=== PATIENT | female | born 2000 | race Caucasian/White ===

== ENCOUNTER 2018-05-30 23:08 | Outpatient (CLI) | payer BC ==
[~2018-05-30] VITALS: Ht 170.2 cm; Wt 71.0 kg
[2018-05-30 23:30] VITALS: BP 125/83
[2018-06-02] MEDS ORDERED: NITR100C56 PO (10:05)
== END 2018-05-31 00:49 | disposition home or self-care (01) ==
LOC: LDOP 23:08
PROVIDERS: ATTEND Obstetrics & Gynecology
DX: O23.43 Unspecified infection of urinary tract in pregnancy, third trimester (principal); Z3A.38 38 weeks gestation of pregnancy
CPT/HCPCS: 59025; 89060; 99201; G0463; Q0114

== ENCOUNTER 2018-06-03 13:32 | Outpatient (CLI) | payer BC ==
[~2018-06-03 13:32] MED LIST: NITR100C56 PO
[2018-06-03 13:51] VITALS: BP 131/86
== END 2018-06-03 14:33 | disposition home or self-care (01) ==
LOC: LDOP 13:32
PROVIDERS: ATTEND Obstetrics & Gynecology
DX: O23.43 Unspecified infection of urinary tract in pregnancy, third trimester (principal); Z3A.38 38 weeks gestation of pregnancy
CPT/HCPCS: 59025; 99211; G0463

== ENCOUNTER 2018-06-05 12:16 | Inpatient (IN) | payer BC ==
[~2018-06-05] VITALS: Ht 170.2 cm; Wt 71.3 kg
[2018-06-05 12:19] VITALS: BP 138/93
[2018-06-05] MEDS ORDERED: OXYTOCIN 30U/ 0.9% NaCL 500ML 500 ML IV PRN (12:20)
[2018-06-05] MEDS: D5%-LACTATED RINGERS 1,000 ML IV SCH ×2 (12:20→20:20)
[2018-06-05] MEDS ORDERED: OXYTOCIN 30U/ 0.9% NaCL 500ML 500 ML IV ONE (12:20)
[2018-06-05] MEDS ORDERED: FENTANYL PF 100 MCG/2ML IVPush PRN (12:30)
[2018-06-05] MEDS ORDERED: FENTANYL PF 100 MCG/2ML IV PRN (12:30)
[2018-06-05] MEDS ORDERED: ONDANSETRON 2MG/ML, 2ML IVPush PRN (12:30)
[2018-06-05] MEDS: LACTATED RINGERS 1,000 ML IV SCH ×2 (12:46→20:20)
[2018-06-05 12:55] LABS: ALANINE AMINOTRANSFERASE 22 U/L (12-78); ANION GAP 8 mmol/L (5-15); CALCIUM 8.5 mg/dL (8.5-10.1); CHLORIDE 105 mmol/L (98-107); CREATININE 0.56 mg/dL (0.55-1.02)
[2018-06-05 12:56] LABS: BILIRUBIN, DIRECT < 0.1 mg/dL (0.1-0.2)
[2018-06-05 12:56] LABS: BASOPHILS # (AUTO) 0.03 x10^3/uL (0-0.3); BASOPHILS % (AUTO) 0 % (0-1); EOSINOPHILS # (AUTO) 0.02 x10^3/uL (0-0.8); EOSINOPHILS % (AUTO) 0 % (1-7); LYMPHOCYTES # (AUTO) 1.57 x10^3/uL (1-6.1); LYMPHOCYTES % (AUTO) 12 % (22-44); MD NO; MEAN CORPUSCULAR HEMOGLOBIN 27.6 pg (27.0-34.8); MEAN CORPUSCULAR HGB CONC 33.6 g/dL (32.4-35.8); MEAN CORPUSCULAR VOLUME 82.3 fL (80-100); MEAN PLATELET VOLUME 8.8 fL (7.4-10.4); MONOCYTES % (AUTO) 7 % (2-9); NEUTROPHILS % (AUTO) 81 % (42-75); PLATELET COUNT 218 x10^3/uL (130-400); RED BLOOD COUNT 4.62 x10^6/uL (3.82-5.3); RED CELL DISTRIBUTION WIDTH 12.9 % (9.6-15.2)
[2018-06-05 12:57] LABS: ALKALINE PHOSPHATASE 156 U/L (45-117); BILIRUBIN,TOTAL 0.3 mg/dL (0.2-1.0); TOTAL PROTEIN 7.4 g/dL (6.4-8.2)
[2018-06-05] MEDS ORDERED: OXYTOCIN 30U/ 0.9% NaCL 500ML 500 ML ONE ×2 (13:37→20:23)
[2018-06-05] MEDS: CEFAZOLIN PMX 2GM/50ML 50 ML IVPB SCH ×2 (14:03→20:00)
[2018-06-05] MEDS ORDERED: FENTANYL PF 100 MCG/2ML ONE (14:28)
[2018-06-05] MEDS ORDERED: LACTATED RINGERS 1,000 ML IV SCH (16:00)
[2018-06-05] MEDS ORDERED: LACTATED RINGERS 1,000 ML IVBOLUS PRN (16:00)
[2018-06-05] MEDS ORDERED: NALOXONE 0.4 MG/ML, 1ML IVPush PRN (16:00)
[2018-06-05] MEDS ORDERED: EPHEDRINE 50 MG/ML, 1ML IVPush PRN (16:00)
[2018-06-05] MEDS ORDERED: FENTANYL/BUPIV./NS/PF 250 ML EPIDCONT SCH ×2 (16:00→16:01)
[2018-06-05] MEDS ORDERED: BUPIVACAINE/PF 0.5% ONE (16:03)
[2018-06-05] MEDS ORDERED: BUPIVACAINE 0.25% ONE (16:19)
[2018-06-05] MEDS ORDERED: FENTANYL/BUPIV./NS/PF 250 ML EPIDCONT ONE (16:19)
[2018-06-05] MEDS ORDERED: FENTANYL PF 500 MCG, BUPIVACAINE/PF 0.5%, 30ML 62.5 ML in SODIUM CHLORIDE 0.9% 177.5 ML EPIDCONT SCH (16:30)
[2018-06-05 17:50] LABS: CREATININE,URINE RANDOM 90.9 mg/dL
[2018-06-05 18:17] LABS: MICROSCOPIC INDICATED
[2018-06-05] MEDS ORDERED: NEWBORN KIT ONE (19:55)
[2018-06-05] MEDS ORDERED: OXYcodone IR 5MG TABLET PO PRN ×2 (20:30)
[2018-06-05] MEDS ORDERED: DOCUSATE 100 MG CAPSULE PO PRN (20:30)
[2018-06-05] MEDS ORDERED: CARBOPROST TROMETHAMINE 250 MCG/ML, 1ML IM PRN (20:30)
[2018-06-05] MEDS ORDERED: MISOPROSTOL 200 MCG TABLET PR PRN (20:30)
[2018-06-05] MEDS ORDERED: METHYLERGONOVINE 0.2 MG/ML IM PRN (20:30)
[2018-06-05] MEDS ORDERED: ONDANSETRON 2MG/ML, 2ML IV PRN (20:30)
[2018-06-05] MEDS: OXYTOCIN 30U/ 0.9% NaCL 500ML 500 ML IV SCH (20:41)
[2018-06-05] MEDS ORDERED: NITROFURANTOIN (MACROBID) 100 MG CAPSULE PO SCH ×2 (23:00→23:17)
[2018-06-05 23:10] VITALS: BP 124/81
[2018-06-05] MEDS: NITROFURANTOIN (MACROBID) 100 MG CAPSULE PO SCH (23:36)
[2018-06-06] VITALS (7 sets, daily range): BP systolic 107–123; BP diastolic 62–77
[2018-06-06] MEDS: IBUPROFEN 800 MG TABLET PO PRN ×3 (01:01→21:40)
[2018-06-06 06:01] LABS: BASOPHILS % (AUTO) 0 % (0-1); EOSINOPHILS % (AUTO) 0 % (1-7); LYMPHOCYTES # (AUTO) 1.63 x10^3/uL (1-6.1); LYMPHOCYTES % (AUTO) 10 % (22-44); MD NO; MEAN CORPUSCULAR HEMOGLOBIN 27.6 pg (27.0-34.8); MEAN CORPUSCULAR HGB CONC 33.7 g/dL (32.4-35.8); MEAN CORPUSCULAR VOLUME 81.9 fL (80-100); MEAN PLATELET VOLUME 8.9 fL (7.4-10.4); MONOCYTES # (AUTO) 1.44 x10^3/uL (0-1.4); MONOCYTES % (AUTO) 9 % (2-9); NEUTROPHILS # (AUTO) 13.15 x10^3/uL (1.8-8.0); NEUTROPHILS % (AUTO) 81 % (42-75); PLATELET COUNT 191 x10^3/uL (130-400); RED BLOOD COUNT 3.47 x10^6/uL (3.82-5.3); RED CELL DISTRIBUTION WIDTH 12.9 % (9.6-15.2)
[2018-06-06] MEDS: OXYTOCIN 30U/ 0.9% NaCL 500ML 500 ML IV SCH (06:04)
[2018-06-06] MEDS: PRENATAL VIT/IRON/FA 1 EACH TABLET PO SCH (07:23)
[2018-06-06] MEDS: NITROFURANTOIN (MACROBID) 100 MG CAPSULE PO SCH ×2 (07:23→21:00)
[2018-06-07 04:50] VITALS: BP 104/57
[2018-06-07] MEDS: IBUPROFEN 800 MG TABLET PO PRN (07:09)
[2018-06-07 07:30] VITALS: BP 94/58
[2018-06-07] MEDS: PRENATAL VIT/IRON/FA 1 EACH TABLET PO SCH (09:00)
[2018-06-07] MEDS: NITROFURANTOIN (MACROBID) 100 MG CAPSULE PO SCH (09:00)
[2018-06-07] MEDS ORDERED: IBUP200T49 PO (14:19)
== END 2018-06-07 18:53 | disposition home or self-care (01) | DRG 807 ==
LOC: LDIP 12:16 → 2NW 22:27
PROVIDERS: ADMIT Obstetrics & Gynecology; ATTEND Obstetrics & Gynecology
PROC: 10E0XZZ Delivery of Products of Conception, External Approach (ICD-10-PCS; principal; 2018-06-05)
PROC: 0KQM0ZZ Repair Perineum Muscle, Open Approach (ICD-10-PCS; 2018-06-05)
PROC: 10907ZC Drainage of Amniotic Fluid, Therapeutic from Products of Conception, Via Natural or Artificial Opening (ICD-10-PCS; 2018-06-05)
PROC: 3E0234Z Introduction of Serum, Toxoid and Vaccine into Muscle, Percutaneous Approach (ICD-10-PCS; 2018-06-05)
PROC: 3E0R3BZ Introduction of Anesthetic Agent into Spinal Canal, Percutaneous Approach (ICD-10-PCS; 2018-06-05)
PROC: 00HU33Z Insertion of Infusion Device into Spinal Canal, Percutaneous Approach (ICD-10-PCS; 2018-06-05)
DX: O13.4 Gestational [pregnancy-induced] hypertension without significant proteinuria, complicating childbirth (principal); Z37.0 Single live birth; O69.81X0 Labor and delivery complicated by cord around neck, without compression, not applicable or unspecified; O12.14 Gestational proteinuria, complicating childbirth; Z3A.38 38 weeks gestation of pregnancy; O70.1 Second degree perineal laceration during delivery; O99.824 Streptococcus B carrier state complicating childbirth
CPT/HCPCS: 36415; 80053; 81001; 82248; 82570; 84156; 84550; 85025; 86850; 86900; G0378; J0690; J3010; J3490; J2590; J7120